=== PATIENT | female | born 1930 | race Caucasian/White ===

== ENCOUNTER 2017-05-27 09:38 | Emergency (ER) | payer MEDICARE, OTHER ==
[~2017-05-27] VITALS: Ht 160 cm; Wt 6.6 kg
[~2017-05-27 09:38] MED LIST: ASPI81TA52 PO; CALC-729 PO; POTA10TA36 PO; SIMV20TA5 PO
[2017-05-27] MEDS ORDERED: normal saline 1000ML IV soln IVB ONE (11:35)
[2017-05-27] MEDS ORDERED: ondansetron/PF 4mg/2ml inj IV ONE (11:35)
[2017-05-27] MEDS ORDERED: SUMAtriptan succ. 6 MG/0.5ml vial SQ ONE (11:35)
[2017-05-27 11:45] LABS: ALBUMIN 3.6 G/DL (3.4-5.0); ANION GAP 10 (8-16); BLOOD UREA NITROGEN 11 MG/DL (7-18); BUN/CREATININE RATIO 15.7 (6.6-38.0); CALCIUM 8.8 MG/DL (8.5-10.1); CHLORIDE 101 MMOL/L (99-107); GLUCOSE 143 MG/DL (70-104); SODIUM 136 MMOL/L (135-145); TOTAL CARBON DIOXIDE 25.3 MMOL/L (24-32); eGFR 79 ML/MIN
[2017-05-27 11:46] LABS: POTASSIUM 3.7 MMOL/L (3.5-5.1)
[2017-05-27 12:25] LABS: BASOPHILS % (AUTO) 0.3 % (0-1); EOSINOPHILS # (AUTO) 0.1 X10'3 (0-0.9); EOSINOPHILS % (AUTO) 1.6 % (0-6); HEMATOCRIT 43.6 % (35.0-45.0); HEMOGLOBIN 14.7 g/dl (12.0-16.0); LYMPHOCYTES # (AUTO) 0.5 X10'3 (1.1-4.8); LYMPHOCYTES % (AUTO) 5.7 % (21-51); MEAN CORPUSCULAR HEMOGLOBIN 30.1 PG (27.0-31.0); MEAN CORPUSCULAR HGB CONC 33.8 % (33.0-36.5); MEAN CORPUSCULAR VOLUME 89.1 FL (78-98); MEAN PLATELET VOLUME 8.8 FL (7.4-10.4); MONOCYTES # (AUTO) 0.2 X10'3 (0-0.9); NEUTROPHILS # (AUTO) 7.8 X10'3 (1.8-7.7); NEUTROPHILS % (AUTO) 90.4 % (42-75); PLATELET COUNT 215 X10'3 (140-440); RED BLOOD COUNT 4.89 X10'6 (4.20-5.60); RED CELL DISTRIBUTION WIDTH 13.1 % (11.5-14.5); WHITE BLOOD COUNT 8.6 X10'3 (4.5-11.0)
[2017-05-27] MEDS ORDERED: ONDA4TAB6 PO (12:37)
[2017-05-27 13:30] VITALS: BP 112/59
== END 2017-05-27 13:32 | disposition home or self-care (01) ==
LOC: ER 09:38
DX: R51 Headache (principal); R11.2 Nausea with vomiting, unspecified; R10.84 Generalized abdominal pain; R07.89 Other chest pain; I10 Essential (primary) hypertension; M19.90 Unspecified osteoarthritis, unspecified site; Z90.710 Acquired absence of both cervix and uterus; Z60.2 Problems related to living alone; Z79.82 Long term (current) use of aspirin; Z79.899 Other long term (current) drug therapy
CPT/HCPCS: 36415; 70450; 80048; 85025; 85651; 93005; 96361; 96372; 96374; 99285; J2405; J3030; J7030

== ENCOUNTER 2018-08-11 09:19 | Inpatient (IN) | payer MEDICARE, OTHER | END 2018-08-13 14:34 | disposition home or self-care (01) | LOC: ER 09:19 → PCU 3S 08-12 17:00 → ED HOLD 11:39 → PCU 3S 13:00 → ICU 2S 20:15 | DX: I44.2 Atrioventricular block, complete (principal) ==

== ENCOUNTER 2018-08-16 09:09 | Emergency (ER) | payer MEDICARE, OTHER ==
[~2018-08-16] VITALS: Ht 162.6 cm; Wt 59.0 kg
[~2018-08-16 09:09] MED LIST changes: +LISI-600 PO; +LORA10TA7 PO; -POTA10TA36 PO
--- NOTE | 2018-08-16 09:25 | NUR ---
PT'S DAUGHTER STATED THAT PT HAD INCREASED WEAKNESS THIS AM, WAS NOTIFIED
[2018-08-16 11:33] VITALS: BP 123/71
== END 2018-08-16 11:39 | disposition home or self-care (01) ==
LOC: ER 09:10
DX: R07.89 Other chest pain (principal); I10 Essential (primary) hypertension; G43.909 Migraine, unspecified, not intractable, without status migrainosus; M19.90 Unspecified osteoarthritis, unspecified site; Z79.82 Long term (current) use of aspirin; Z79.899 Other long term (current) drug therapy; Z90.710 Acquired absence of both cervix and uterus; Z98.890 Other specified postprocedural states; Z95.0 Presence of cardiac pacemaker
CPT/HCPCS: 71046; 93005; 99284

== ENCOUNTER 2019-04-08 03:49 | Emergency (ER) | payer MEDICARE, OTHER ==
[~2019-04-08] VITALS: Ht 162.6 cm; Wt 59.0 kg
[~2019-04-08 03:49] MED LIST changes: +SIMV-42 PO; -SIMV20TA5 PO
[2019-04-08 04:13] VITALS: BP 143/76
== END 2019-04-08 04:26 | disposition home or self-care (01) ==
LOC: ER 03:50
DX: R04.0 Epistaxis (principal); G43.909 Migraine, unspecified, not intractable, without status migrainosus; I10 Essential (primary) hypertension; M19.90 Unspecified osteoarthritis, unspecified site; Z79.899 Other long term (current) drug therapy; Z79.82 Long term (current) use of aspirin; Z90.49 Acquired absence of other specified parts of digestive tract; Z90.710 Acquired absence of both cervix and uterus; Z95.0 Presence of cardiac pacemaker; Z60.2 Problems related to living alone
CPT/HCPCS: 99283